=== PATIENT | female | born 1965 | race Caucasian/White ===

== ENCOUNTER → 2016-04-23 | Outpatient (CLI) | payer OTHER ==
--- NOTE | 2016-04-23 10:32 | MM ---
Reason for exam: additional evaluation requested from prior study. Last mammogram was performed 1 year ago. History: Patient has history of other cancer at age 39. Family history of breast cancer in maternal cousin at age 48 and breast cancer in maternal aunt at age 45. Benign right breast US guided needle local of the right breast, October 01, 2009. Benign US right core biopsy of the right breast, January 08, 2005. Retro-pectoral saline implants in both breasts, 1994. Took hormonal contraceptives for 11 years beginning at age 34. Physical Findings: Nurse did not find any significant physical abnormalities on exam. MG 3D Diag Mammo W/Cad ROBIN Bilateral CC, MLO, and ID view(s) were taken. Prior study comparison: April 11, 2015, bilateral MG 3d diag mammo imp w/cad ROBIN. March 04, 2013, CAD bilateral diagnostic mammogram. The breast tissue is heterogeneously dense. This may lower the sensitivity of mammography. No significant new findings when compared with previous films. These results were verbally communicated with the patient and result sheet given to the patient on 04/23/16. ASSESSMENT: Benign, BI-RAD 2 RECOMMENDATION: Routine screening mammogram of both breasts in 1 year.
== END | disposition home or self-care (01) ==
LOC: RADMAMWWP 08:48
PROVIDERS: ATTEND Obstetrics & Gynecology
DX: Z98.82 Breast implant status (principal)
CPT/HCPCS: G0204; G0279

== ENCOUNTER → 2017-04-23 | Outpatient (CLI) | payer OTHER ==
--- NOTE | 2017-04-27 07:00 | MM ---
Reason for exam: screening (asymptomatic). Last mammogram was performed 1 year ago. History: Patient is postmenopausal and has history of other cancer at age 39. Family history of breast cancer in maternal cousin at age 48 and breast cancer in maternal aunt at age 45. Benign right breast US guided needle local of the right breast, October 01, 2009. Benign US right core biopsy of the right breast, January 08, 2005. Retro-pectoral saline implants in both breasts, 1994. Took hormonal contraceptives for 11 years beginning at age 34. Physical Findings: A clinical breast exam by your physician is recommended on an annual basis and results should be correlated with mammographic findings. MG 3D Screen Mammo Imp/Cad Bilateral CC, MLO, and ID view(s) were taken. Prior study comparison: April 23, 2016, bilateral MG 3d diag mammo w/cad ROBIN. April 11, 2015, bilateral MG 3d diag mammo imp w/cad ROBIN. The breast tissue is heterogeneously dense. This may lower the sensitivity of mammography. No significant changes when compared with prior studies. ASSESSMENT: Benign, BI-RAD 2 RECOMMENDATION: Follow-up diagnostic mammogram of both breasts in 1 year.
== END | disposition home or self-care (01) ==
LOC: RADMAMWWP 07:17
PROVIDERS: ATTEND Obstetrics & Gynecology
DX: Z12.31 Encounter for screening mammogram for malignant neoplasm of breast (principal); Z80.3 Family history of malignant neoplasm of breast
CPT/HCPCS: 77063; 77067

== ENCOUNTER → 2017-11-04 | Outpatient (CLI) | payer OTHER ==
--- NOTE | 2017-11-05 12:37 | BD ---
EXAMINATION TYPE: Axial Bone Density DATE OF EXAM: 11/04/2017 COMPARISON: NONE CLINICAL HISTORY: Height: 65.5 Weight: 154.1 FRAX RISK QUESTIONS: Alcohol (3 or more units per day): no Family History (Parent hip fracture): no Glucocorticoids (More than 3mos): no (Ex: prednisone, prednisolone, methylprednisolone, dexamethasone, and hydrocortisone). History of Fracture in Adulthood: no Secondary Osteoporosis: 1. Type 1 Diabetes: no 2. Hyperthyroidism: no 3. Menopause before 45: no 4. Malnutrition: no 5. Chronic liver disease: no Rheumatoid Arthritis: no Current Tobacco Use: no RISK FACTORS HISTORY OF: Family History of Osteoporosis: no Active: yes Diet low in dairy products/other sources of calcium: yes Postmenopausal woman: age 49 Lost more than 2 inches in height since high school: no MEDICATIONS: ventalin, flovent Thyroid Medications: synthroid How Lon years Additional History: pt had thyroid cancer 2005 EXAM MEASUREMENTS: Bone mineral densitometry was performed using the Trochet System. Bone mineral density as measured about the Lumbar spine is: ----- L1-L4(G/cm2): 1.403 T Score Values are as follows: ----- L2: 1.8 ----- L3: 2.9 ----- L4: 1.0 ----- L1-L4: 1.9 Bone mineral density has: decreased-2.0 % since study of: 12.30.2007 Bone mineral density about the R hip (g/cm2): 1.121 Bone mineral density about the L hip (g/cm2): 1.125 T Score values are as follows: -----R Neck: 0.6 -----L Neck: 0.6 -----R Total: 1.0 -----L Total: 1.0 Bone mineral density has: decreased -1.1 % since study of: 12.30.2007 IMPRESSION: No evidence for osteoporosis or osteopenia. NOTE: T-SCORE=SD OF THE YOUNG ADULT MEAN.
== END | disposition home or self-care (01) ==
LOC: RADBDWWP 15:58
PROVIDERS: ATTEND Obstetrics & Gynecology
DX: Z13.820 Encounter for screening for osteoporosis (principal)
CPT/HCPCS: 77080

== ENCOUNTER → 2018-09-09 | Outpatient (CLI) | payer OTHER ==
--- NOTE | 2018-09-09 11:50 | MM ---
Reason for exam: screening (asymptomatic). Last mammogram was performed 1 year and 5 months ago. History: Patient is postmenopausal and has history of other cancer at age 39. Family history of breast cancer in maternal cousin at age 48 and breast cancer in maternal aunt at age 45. Benign right breast US guided needle local of the right breast, October 01, 2009. Benign US right core biopsy of the right breast, January 08, 2005. Retro-pectoral saline implants in both breasts, 1994. Took hormonal contraceptives for 11 years beginning at age 34. Physical Findings: A clinical breast exam by your physician is recommended on an annual basis and results should be correlated with mammographic findings. MG 3D Screen Mammo Imp/Cad Bilateral CC, MLO, and ID view(s) were taken. Prior study comparison: April 23, 2017, bilateral MG 3d screen mammo imp/cad. April 23, 2016, bilateral MG 3d diag mammo w/cad ROBIN. The breast tissue is extremely dense which could obscure a lesion on mammography. No suspicious abnormality. Right biopsy marker noted. There are bilateral retropectoral saline implants. ASSESSMENT: Negative, BI-RAD 1 RECOMMENDATION: Routine screening mammogram of both breasts in 1 year.
== END | disposition home or self-care (01) ==
LOC: RADMAMWWP 08:27
PROVIDERS: ATTEND Obstetrics & Gynecology
DX: Z12.31 Encounter for screening mammogram for malignant neoplasm of breast (principal); Z98.82 Breast implant status
CPT/HCPCS: 77063; 77067

== ENCOUNTER 2019-11-30 13:14 | Emergency (ER) | payer OTHER ==
[2019-11-30 13:21] VITALS: TEMP 98.2
[2019-11-30] MEDS ORDERED: ASPIRIN 81 MG PO STA (13:29)
--- NOTE | 2019-11-30 13:34 | ED ---
General Adult HPI - General Source: patient, RN notes reviewed Mode of arrival: wheelchair Limitations: no limitations <Anibal Evans - Last Filed: 11/30/19 13:53> <Ronald Ohara - Last Filed: 11/30/19 15:02> - General Chief complaint: Arrhythmia/Palpitations Stated complaint: Abnormal EKG Time Seen by Provider: 11/30/19 13:23 - History of Present Illness Initial comments: 54-year-old female presents emergency Department from PCPs office chief complaint of hypertension, chest pressure. Patient states that she normally monitors her blood pressure and states it was elevated last night states that she had a new blood pressure cuff when she checked it again this morning and was found to have hypertension. Patient called ECP regarding today and performed an EKG which he felt that was abnormal. They did not have an old EKG to compare to so sent her to the emergency department for further evaluation.Patient describes that she has a squeezing sensation across her chest but it's not sharp pain.She does see carbon paper interleafer for alph1 antitrypsin. Patient denies any fevers or chills. No headache no dizziness. Patient has no prior cardiac disease. (Anibal Evans) - Related Data Home Medications Medication Instructions Recorded Confirmed Albuterol Sulfate [Ventolin HFA] 1 - 2 puff INHALATION RT-Q6H PRN 11/30/19 11/30/19 Cholecalciferol [Vitamin D3 (25 2,000 unit PO DAILY 11/30/19 11/30/19 Mcg = 1000 Iu)] Fluticasone Propionate [Flovent 2 puff INHALATION RT-BID 11/30/19 11/30/19 Hfa 220 mcg] Levothyroxine Sodium [Synthroid] 125 mcg PO MOTUWETHFRSA 11/30/19 11/30/19 Levothyroxine Sodium [Synthroid] 175 mcg PO MA 11/30/19 11/30/19 Montelukast [Singulair] 10 mg PO HS 11/30/19 11/30/19 Allergies Allergy/AdvReac Type Severity Reaction Status Date / Time meperidine HCl [From Demerol] Allergy Nausea & Verified 11/30/19 14:38 Vomiting Penicillins Allergy Rash/Hives Verified 11/30/19 14:38 Sulfa (Sulfonamide Allergy Rash/Hives Verified 11/30/19 14:38 Antibiotics) Review of Systems ROS Other: All systems not noted in ROS Statement are negative. <Anibal Evans - Last Filed: 11/30/19 13:53> ROS Other: All systems not noted in ROS Statement are negative. <Ronald Ohara - Last Filed: 11/30/19 15:02> ROS Statement: Those systems with pertinent positive or pertinent negative responses have been documented in the HPI. Past Medical History Past Medical History: Asthma, Cancer, GERD/Reflux, GI Bleed, Hypertension Additional Past Medical History / Comment(s): hx thyroid cancer, abdominal pain and black stools History of Any Multi-Drug Resistant Organisms: None Reported Past Surgical History: Section, Tonsillectomy Additional Past Surgical History / Comment(s): thyroidectomy Past Anesthesia/Blood Transfusion Reactions: No Reported Reaction Past Psychological History: No Psychological Hx Reported Smoking Status: Never smoker Past Alcohol Use History: Occasional Past Drug Use History: None Reported - Past Family History Father Family Medical History: Cancer Additional Family Medical History / Comment(s): hx colon cancer <nAibal Evans - Last Filed: 11/30/19 13:53> General Exam Limitations: no limitations General appearance: alert, in no apparent distress Head exam: Present: atraumatic, normocephalic, normal inspection Eye exam: Present: normal appearance, PERRL, EOMI. Absent: scleral icterus, conjunctival injection, periorbital swelling ENT exam: Present: normal exam, normal oropharynx, mucous membranes moist Neck exam: Present: normal inspection, full ROM. Absent: tenderness, meningismus, lymphadenopathy Respiratory exam: Present: normal lung sounds bilaterally. Absent: respiratory distress, wheezes, rales, rhonchi, stridor Cardiovascular Exam: Present: regular rate, normal rhythm, normal heart sounds. Absent: systolic murmur, diastolic murmur, rubs, gallop, clicks GI/Abdominal exam: Present: soft, normal bowel sounds. Absent: distended, tenderness, guarding, rebound, rigid Neurological exam: Present: alert, oriented X3 Skin exam: Present: warm, dry, intact, normal color. Absent: rash <Anibal Evans - Last Filed: 11/30/19 13:53> General appearance: alert, in no apparent distress Head exam: Present: atraumatic, normocephalic, normal inspection Eye exam: Present: normal appearance, PERRL, EOMI. Absent: scleral icterus, conjunctival injection, periorbital swelling ENT exam: Present: normal exam, mucous membranes moist Neck exam: Present: normal inspection. Absent: tenderness, meningismus, lymphadenopathy Respiratory exam: Present: normal lung sounds bilaterally. Absent: respiratory distress, wheezes, rales, rhonchi, stridor Cardiovascular Exam: Present: regular rate, normal rhythm, normal heart sounds. Absent: systolic murmur, diastolic murmur, rubs, gallop, clicks GI/Abdominal exam: Present: soft, normal bowel sounds. Absent: distended, tenderness, guarding, rebound, rigid Extremities exam: Present: normal inspection, full ROM, normal capillary refill. Absent: tenderness, pedal edema, joint swelling, calf tenderness Back exam: Present: normal inspection Neurological exam: Present: alert, oriented X3, CN II-XII intact Psychiatric exam: Present: normal affect, normal mood Skin exam: Present: warm, dry, intact, normal color. Absent: rash <Ronald Ohara - Last Filed: 11/30/19 15:02> Course <Ronald Ohara - Last Filed: 11/30/19 15:02> Vital Signs 11/30/19 11/30/19 11/30/19 13:19 14:00 14:35 Temperature 98.2 F Pulse Rate 75 67 62 Respiratory 18 12 18 Rate Blood Pressure 176/98 178/95 155/104 O2 Sat by Pulse 100 98 100 Oximetry - Reevaluation(s) Reevaluation #1: 11/30/19 15:01 Medical records reviewed (Ronald Ohara) Reevaluation #2: 11/30/19 15:01 Patient reevaluated with symptoms significantly improved, no chest pain Spoke with patient regarding results, questions answered Patient feels good for discharge home (Ronald Ohara) EKG Findings - EKG Comments: EKG Findings:: EKG performed at 13:32 normal sinus rhythm rate of 65 AR 124 QRS 76 QT/QTC 404/420 <Anibal Evans - Last Filed: 11/30/19 13:53> Medical Decision Making - Lab Data Result diagrams: 11/30/19 13:48 11/30/19 13:48 <Ronald Ohara - Last Filed: 11/30/19 15:02> - Medical Decision Making 54 female DF for chest pain evaluation possible normal EKG evaluation and dew onset hypertension. Patient relatively asymptomatic can be discharged home to start new blood pressure medication follow-up with primary care (Ronald Ohara) - Lab Data Lab Results 11/30/19 11/30/19 11/30/19 Range/Units 13:48 13:48 13:48 WBC 4.8 (3.8-10.6) k/uL RBC 4.97 (3.80-5.40) m/uL Hgb 15.0 (11.4-16.0) gm/dL Hct 46.1 H (34.0-46.0) % MCV 92.7 (80.0-100.0) fL MCH 30.2 (25.0-35.0) pg MCHC 32.5 (31.0-37.0) g/dL RDW 12.1 (11.5-15.5) % Plt Count 268 (150-450) k/uL Neutrophils % 69 % Lymphocytes % 22 % Monocytes % 5 % Eosinophils % 1 % Basophils % 1 % Neutrophils # 3.3 (1.3-7.7) k/uL Lymphocytes # 1.0 (1.0-4.8) k/uL Monocytes # 0.3 (0-1.0) k/uL Eosinophils # 0.1 (0-0.7) k/uL Basophils # 0.0 (0-0.2) k/uL PT 9.9 (9.0-12.0) sec INR 1.0 (<1.2) APTT 23.5 (22.0-30.0) sec D-Dimer 0.27 (<0.60) mg/L FEU Sodium 137 (137-145) mmol/L Potassium 4.0 (3.5-5.1) mmol/L Chloride 105 (98-107) mmol/L Carbon Dioxide 24 (22-30) mmol/L Anion Gap 8 mmol/L BUN 16 (7-17) mg/dL Creatinine 0.65 (0.52-1.04) mg/dL Est GFR (CKD-EPI)AfAm >90 (>60 ml/min/1.73 sqM) Est GFR (CKD-EPI)NonAf >90 (>60 ml/min/1.73 sqM) Glucose 91 (74-99) mg/dL Calcium 9.9 (8.4-10.2) mg/dL Magnesium 2.0 (1.6-2.3) mg/dL Total Bilirubin 0.8 (0.2-1.3) mg/dL AST 30 (14-36) U/L ALT 20 (4-34) U/L Alkaline Phosphatase 56 (38-126) U/L Troponin I (0.000-0.034) ng/mL NT-Pro-B Natriuret Pep pg/mL Total Protein 7.5 (6.3-8.2) g/dL Albumin 4.9 (3.5-5.0) g/dL 11/30/19 11/30/19 Range/Units 13:48 13:48 WBC (3.8-10.6) k/uL RBC (3.80-5.40) m/uL Hgb (11.4-16.0) gm/dL Hct (34.0-46.0) % MCV (80.0-100.0) fL MCH (25.0-35.0) pg MCHC (31.0-37.0) g/dL RDW (11.5-15.5) % Plt Count (150-450) k/uL Neutrophils % % Lymphocytes % % Monocytes % % Eosinophils % % Basophils % % Neutrophils # (1.3-7.7) k/uL Lymphocytes # (1.0-4.8) k/uL Monocytes # (0-1.0) k/uL Eosinophils # (0-0.7) k/uL Basophils # (0-0.2) k/uL PT (9.0-12.0) sec INR (<1.2) APTT (22.0-30.0) sec D-Dimer (<0.60) mg/L FEU Sodium (137-145) mmol/L Potassium (3.5-5.1) mmol/L Chloride (98-107) mmol/L Carbon Dioxide (22-30) mmol/L Anion Gap mmol/L BUN (7-17) mg/dL Creatinine (0.52-1.04) mg/dL Est GFR (CKD-EPI)AfAm (>60 ml/min/1.73 sqM) Est GFR (CKD-EPI)NonAf (>60 ml/min/1.73 sqM) Glucose (74-99) mg/dL Calcium (8.4-10.2) mg/dL Magnesium (1.6-2.3) mg/dL Total Bilirubin (0.2-1.3) mg/dL AST (14-36) U/L ALT (4-34) U/L Alkaline Phosphatase (38-126) U/L Troponin I <0.012 (0.000-0.034) ng/mL NT-Pro-B Natriuret Pep 53 pg/mL Total Protein (6.3-8.2) g/dL Albumin (3.5-5.0) g/dL Disposition <Anibal Evans - Last Filed: 11/30/19 13:53> Is patient prescribed a controlled substance at d/c from ED?: No <Ronald Ohara - Last Filed: 11/30/19 15:02> Clinical Impression: Hypertension Disposition: HOME SELF-CARE Condition: Good Instructions (If sedation given, give patient instructions): Hypertension (ED) Referrals: Roseanne Whtieside MD [Primary Care Provider] - 1-2 days
[2019-11-30 13:57] LABS: Basophils % (A) 1 %; Eosinophils # (A) 0.1 k/uL (0-0.7); Eosinophils % (A) 1 %; HCT 46.1 % (34.0-46.0); Lymphocytes % (A) 22 %; MCH 30.2 pg (25.0-35.0); MCHC 32.5 g/dL (31.0-37.0); MCV 92.7 fL (80.0-100.0); Mean Platelet Volume 7.4; Monocytes # (A) 0.3 k/uL (0-1.0); Monocytes % (A) 5 %; Neutrophils # (A) 3.3 k/uL (1.3-7.7); Neutrophils % (A) 69 %; Platelet Count 268 k/uL (150-450); RBC 4.97 m/uL (3.80-5.40); RDW 12.1 % (11.5-15.5); WBC 4.8 k/uL (3.8-10.6)
[2019-11-30 14:05] LABS: ALT 20 U/L (4-34); AST 30 U/L (14-36); African American GFR (CKD) >90 (>60 ml/min/1.73 sqM); Albumin 4.9 g/dL (3.5-5.0); Alkaline Phosphatase 56 U/L (38-126); Anion Gap 8 mmol/L; Blood Urea Nitrogen 16 mg/dL (7-17); Calcium 9.9 mg/dL (8.4-10.2); Carbon Dioxide 24 mmol/L (22-30); Chloride 105 mmol/L (98-107); Glucose 91 mg/dL (74-99); Non-African American GFR(CKD) >90 (>60 ml/min/1.73 sqM); Sodium 137 mmol/L (137-145); Total Bilirubin 0.8 mg/dL (0.2-1.3); Total Protein 7.5 g/dL (6.3-8.2)
--- NOTE | 2019-11-30 14:08 | XR ---
EXAMINATION TYPE: XR chest 2V DATE OF EXAM: 11/30/2019 COMPARISON: NONE HISTORY: Chest pain TECHNIQUE: Frontal and lateral views of the chest are obtained. FINDINGS: There is no focal air space opacity. No evidence for pneumothorax. No pleural effusion. The cardiac silhouette size is within normal limits. The osseous structures are grossly intact. IMPRESSION: 1. No acute cardiopulmonary process.
[2019-11-30 14:27] LABS: D-Dimer 0.27 mg/L FEU (<0.60); Partial Thromboplastin Time 23.5 sec (22.0-30.0); Prothrombin Time 9.9 sec (9.0-12.0)
[2019-11-30 14:37] VITALS: RESP 18
[2019-11-30 15:14] VITALS: BP 152/85; PULSE 70
== END 2019-11-30 15:12 | disposition home or self-care (01) ==
LOC: EC 13:14
DX: I10 Essential (primary) hypertension (principal); J45.909 Unspecified asthma, uncomplicated; Z79.51 Long term (current) use of inhaled steroids; Z79.890 Hormone replacement therapy; Z88.0 Allergy status to penicillin; Z88.2 Allergy status to sulfonamides; Z88.5 Allergy status to narcotic agent; Z85.850 Personal history of malignant neoplasm of thyroid
CPT/HCPCS: 36415; 71046; 80053; 83735; 83880; 84484; 85025; 85379; 85610; 85730; 99285

== ENCOUNTER → 2020-08-02 | Outpatient (CLI) | payer OTHER ==
--- NOTE | 2020-08-02 10:25 | NM ---
EXAMINATION TYPE: NM hepatobiliary w EF DATE OF EXAM: 08/02/2020 COMPARISON: NONE HISTORY: Right upper quadrant pain TECHNIQUE: After the intravenous administration of 4.6 mCi Tc 99m Mebrofenin hepatobiliary scintigrap hy is performed. Immediate images post injection. FINDINGS: There is satisfactory initial accumulation of tracer by the liver. The gallbladder is visualized wit hin 14 minutes. The small bowel activity is noted within 22 minutes. At one hour 8 ounces of oral e nsure plus is given to mimic CCK and gallbladder ejection fraction is calculated at 62 %, in the norm al range. Therefore there is no scintigraphic evidence of cystic or common bile duct obstruction to suggest acute cholecystitis or gallbladder dyskinesia. IMPRESSION: Exam is within normal limits.
== END | disposition home or self-care (01) ==
LOC: RADNMMAIN 07:04
PROVIDERS: ATTEND Physician Assistant Medical
DX: R10.11 Right upper quadrant pain (principal)
CPT/HCPCS: 78226; A9537

== ENCOUNTER → 2020-08-23 | Outpatient (CLI) | payer OTHER ==
--- NOTE | 2020-08-23 15:26 | CT ---
EXAMINATION TYPE: CT abdomen w con DATE OF EXAM: 08/23/2020 COMPARISON: None HISTORY: abdominal pain, abnormal pancreatic labs CT DLP: 354.2 mGycm Automated exposure control for dose reduction was used. CONTRAST: Performed with IV Contrast, patient injected with 100 mL of Isovue 300. Images obtained from the diaphragm to the iliac crests with oral and IV contrast. The lung bases are clear. There is no pleural effusion. There is bilateral breast implants. Heart siz e is normal. There is no pericardial effusion. There are numerous rounded fluid densities in the live r consistent with multiple small cysts. These measure up to 13 mm. Gallbladder is intact. Spleen is i ntact. There is no evidence of pancreatic mass. The stomach is intact. There is some wall thickening of the gastric antrum probably due to peristalsis. This is circumferential and uniform thickness. Thi s appears to change slightly on the delayed images also consistent with peristalsis. There is no adrenal mass. Kidneys show satisfactory contrast opacification. There is no hydronephrosi s. There is no retroperitoneal adenopathy. Delayed images show normal renal excretion. there is no mesenteric edema. There is no ascites or free air. There is no bowel obstruction. The smith mbar vertebra have normal alignment. There is no compression fracture. Posterior elements are intact. IMPRESSION: Multiple hepatic cysts. No evidence of pancreatic mass.
== END | disposition home or self-care (01) ==
LOC: RADCTMAIN 11:05
PROVIDERS: ATTEND Physician Assistant Medical
DX: K76.89 Other specified diseases of liver (principal)
CPT/HCPCS: 74160; Q9967

== ENCOUNTER → 2020-12-11 | Outpatient (CLI) | payer OTHER ==
--- NOTE | 2020-12-12 13:18 | MM ---
Reason for exam: screening (asymptomatic). Last mammogram was performed 1 year ago. History: Patient is postmenopausal and has history of other cancer at age 39. Family history of breast cancer in maternal cousin at age 48 and breast cancer in maternal aunt at age 45. Benign right breast US guided needle local of the right breast, October 01, 2009. Benign US right core biopsy of the right breast, January 08, 2005. Retro-pectoral saline implants in both breasts, 1994. Took hormonal contraceptives for 11 years beginning at age 34. Physical Findings: A clinical breast exam by your physician is recommended on an annual basis and results should be correlated with mammographic findings. MG 3D Screen Mammo Imp/Cad Bilateral CC and MLO view(s) were taken. Prior study comparison: December 08, 2019, bilateral MG 3d screen mammo imp/cad. September 09, 2018, bilateral MG 3d screen mammo imp/cad. The breast tissue is heterogeneously dense. This may lower the sensitivity of mammography. Stable bilateral implants. ASSESSMENT: Negative, BI-RAD 1 RECOMMENDATION: Routine screening mammogram of both breasts in 1 year.
== END | disposition home or self-care (01) ==
LOC: RADMAMWWP 08:16
PROVIDERS: ATTEND Obstetrics & Gynecology
DX: Z12.31 Encounter for screening mammogram for malignant neoplasm of breast (principal); Z78.0 Asymptomatic menopausal state; Z85.9 Personal history of malignant neoplasm, unspecified; Z79.3 Long term (current) use of hormonal contraceptives; Z80.3 Family history of malignant neoplasm of breast
CPT/HCPCS: 77063; 77067

== ENCOUNTER 2021-12-30 00:44 | Emergency (ER) | payer OTHER ==
[2021-12-30 00:53] VITALS: BP 133/83; RESP 16; TEMP 97.8
[2021-12-30] MEDS ORDERED: SODIUM CHLORIDE 0.9% 1,000 ML IV STA (00:54)
--- NOTE | 2021-12-30 00:56 | ED ---
Chest Pain HPI - General Chief Complaint: Chest Pain Stated Complaint: Chest Pain Time Seen by Provider: 12/30/21 00:54 Source: patient, RN notes reviewed, old records reviewed Mode of arrival: ambulatory Limitations: no limitations - History of Present Illness Initial Comments: This is a 56-year-old female DF for evaluation patient presents with right-sided chest pain. Has had to go to her job but no other specific complaint noted. Pain is nearly resolved here on arrival to the ER. She has no nausea no vomiting no fevers no cough no congestion no shortness of breath and tingling no other prior similar history MD Complaint: chest pain -: hour(s) Onset: during rest, during exertion Pain Location: right chest Pain Radiation: back, jaw/teeth Severity: moderate Severity scale (1-10): 4 Quality: tightness, aching Consistency: intermittent, now resolved Improves With: nothing Worsens With: nothing Anginal Symptoms: dyspnea Other Symptoms: palpitations Treatments Prior to Arrival: none - Related Data Home Medications Medication Instructions Recorded Confirmed Albuterol Sulfate [Ventolin HFA] 1 - 2 puff INHALATION RT-Q6H PRN 11/30/19 11/30/19 Cholecalciferol [Vitamin D3 (25 2,000 unit PO DAILY 11/30/19 11/30/19 Mcg = 1000 Iu)] Fluticasone Propionate [Flovent 2 puff INHALATION RT-BID 11/30/19 11/30/19 Hfa 220 mcg] Levothyroxine Sodium [Synthroid] 125 mcg PO MOTUWETHFRSA 11/30/19 11/30/19 Levothyroxine Sodium [Synthroid] 175 mcg PO MA 11/30/19 11/30/19 Montelukast [Singulair] 10 mg PO HS 11/30/19 11/30/19 Allergies Allergy/AdvReac Type Severity Reaction Status Date / Time meperidine HCl [From Demerol] Allergy Nausea & Verified 12/30/21 00:53 Vomiting Penicillins Allergy Rash/Hives Verified 12/30/21 00:53 Sulfa (Sulfonamide Allergy Rash/Hives Verified 12/30/21 00:53 Antibiotics) Review of Systems ROS Statement: Those systems with pertinent positive or pertinent negative responses have been documented in the HPI. ROS Other: All systems not noted in ROS Statement are negative. EKG Findings - EKG Comments: EKG Findings:: EKG sinus 60 NM 124 QRS 90 QTC 433 Past Medical History Past Medical History: Asthma, Cancer, GERD/Reflux, GI Bleed, Hypertension Additional Past Medical History / Comment(s): hx thyroid cancer, abdominal pain and black stools History of Any Multi-Drug Resistant Organisms: None Reported Past Surgical History: Section, Tonsillectomy Additional Past Surgical History / Comment(s): thyroidectomy Past Anesthesia/Blood Transfusion Reactions: No Reported Reaction Past Psychological History: No Psychological Hx Reported Smoking Status: Never smoker Past Alcohol Use History: Occasional Past Drug Use History: None Reported - Past Family History Father Family Medical History: Cancer Additional Family Medical History / Comment(s): hx colon cancer General Exam Limitations: no limitations General appearance: alert, in no apparent distress Head exam: Present: atraumatic, normocephalic, normal inspection Eye exam: Present: normal appearance, PERRL, EOMI. Absent: scleral icterus, conjunctival injection, periorbital swelling ENT exam: Present: normal exam, mucous membranes moist Neck exam: Present: normal inspection. Absent: tenderness, meningismus, lymphadenopathy Respiratory exam: Present: normal lung sounds bilaterally. Absent: respiratory distress, wheezes, rales, rhonchi, stridor Cardiovascular Exam: Present: regular rate, normal rhythm, normal heart sounds. Absent: systolic murmur, diastolic murmur, rubs, gallop, clicks GI/Abdominal exam: Present: soft, normal bowel sounds. Absent: distended, tenderness, guarding, rebound, rigid Extremities exam: Present: normal inspection, full ROM, normal capillary refill. Absent: tenderness, pedal edema, joint swelling, calf tenderness Back exam: Present: normal inspection Neurological exam: Present: alert, oriented X3, CN II-XII intact Psychiatric exam: Present: normal affect, normal mood Skin exam: Present: warm, dry, intact, normal color. Absent: rash Course Vital Signs 12/30/21 12/30/21 00:50 01:54 Temperature 97.8 F Pulse Rate 78 Pulse Rate [ 74 Bilateral Apical] Respiratory 16 Rate Blood Pressure 133/83 O2 Sat by Pulse 98 Oximetry - Reevaluation(s) Reevaluation #1: 12/30/21 Medical record is reviewed Patient symptoms resolved here in the ER Patient informed results and questions answered Chest Pain MDM - MDM 56 female with atypical chest pain right-sided chest pain to jaw and neck. X- ray labwork are normal here normal EKG, patient can be discharged home Disposition Clinical Impression: Atypical chest pain, Chest pain Disposition: HOME SELF-CARE Instructions (If sedation given, give patient instructions): Chest Pain (ED) Is patient prescribed a controlled substance at d/c from ED?: No Referrals: Roseanne Whiteside MD [Primary Care Provider] - 1-2 days Time of Disposition: 02:45
[2021-12-30 01:29] LABS: Basophils % (A) 1 %; Eosinophils # (A) 0.1 k/uL (0-0.7); Eosinophils % (A) 2 %; HCT 41.3 % (34.0-46.0); HGB 14.1 gm/dL (11.4-16.0); Lymphocytes # (A) 1.6 k/uL (1.0-4.8); Lymphocytes % (A) 34 %; MCH 31.2 pg (25.0-35.0); MCHC 34.1 g/dL (31.0-37.0); MCV 91.4 fL (80.0-100.0); Mean Platelet Volume 7.4; Monocytes # (A) 0.3 k/uL (0-1.0); Monocytes % (A) 7 %; Neutrophils # (A) 2.6 k/uL (1.3-7.7); Neutrophils % (A) 55 %; Platelet Count 264 k/uL (150-450); RBC 4.52 m/uL (3.80-5.40); RDW 12.7 % (11.5-15.5); WBC 4.6 k/uL (3.8-10.6)
--- NOTE | 2021-12-30 01:40 | XR ---
EXAMINATION TYPE: XR chest 1V portable DATE OF EXAM: 12/30/2021 COMPARISON: 11/30/2019 HISTORY: Chest pain TECHNIQUE: Single view FINDINGS: Heart and mediastinum are normal. Lungs are clear. Diaphragm is normal. Bony thorax appears normal. IMPRESSION: Normal chest
[2021-12-30 01:45] LABS: Partial Thromboplastin Time 25.8 sec (22.0-30.0); Prothrombin Time 11.1 sec (9.0-12.0)
[2021-12-30 01:55] LABS: Albumin 4.8 g/dL (3.5-5.0); Calcium 9.8 mg/dL (8.4-10.2); Magnesium 1.7 mg/dL (1.6-2.3); Potassium 3.6 mmol/L (3.5-5.1); Total Bilirubin 0.3 mg/dL (0.2-1.3); Total Protein 7.2 g/dL (6.3-8.2)
[2021-12-30 01:59] VITALS: PULSE 74
== END 2021-12-30 02:56 | disposition home or self-care (01) ==
LOC: EC 00:44
DX: R07.89 Other chest pain (principal); R06.00 Dyspnea, unspecified; R00.2 Palpitations; J45.909 Unspecified asthma, uncomplicated; I10 Essential (primary) hypertension; Z79.51 Long term (current) use of inhaled steroids; Z88.6 Allergy status to analgesic agent; Z88.0 Allergy status to penicillin; Z88.2 Allergy status to sulfonamides
CPT/HCPCS: 36415; 71045; 80053; 83690; 83735; 83880; 84484; 85025; 85379; 85610; 85730; 93005; 99285

== ENCOUNTER → 2022-04-08 | Outpatient (CLI) | payer OTHER ==
--- NOTE | 2022-04-09 07:17 | MM ---
Reason for Exam: Hx of breast augmentation, asymptomatic. Last mammogram was performed 1 year(s) and 4 month(s) ago. Patient History: Menarche at age 14. First Full-Term at age 27. Postmenopausal. Patient has history of breast feeding. Other cancer, age 39. Hormonal Contraceptives for 11 years from age 34 until age 45. 10/01/2009, Benign Excisional Biopsy on the right side. 01/08/2005, Benign Core Biopsy on the right side. 1994, Bilateral Implants. Maternal cousin had breast cancer, age 48. Maternal aunt had breast cancer, age 45. Risk Values: Valerie 5 year model risk: 2.0%. NCI Lifetime model risk: 11.7%. Prior Study Comparison: 04/23/2016 Bilateral Diagnostic Mammogram, [facility]. 04/23/2017 Bilateral Screening Mammogram, [facility]. 09/09/2018 Bilateral Screening Mammogram, [facility]. 12/08/2019 Bilateral Screening Mammogram, [facility]. 12/11/2020 Bilateral Screening Mammogram, [facility]. Tissue Density: The breast tissue is heterogeneously dense. This may lower the sensitivity of mammography. Findings: Analyzed By CAD. Right biopsy clip. There is no suspicious group of microcalcifications or new suspicious mass in either breast. Overall Assessment: Negative, BI-RAD 1 Management: Screening Mammogram of both breasts in 1 year. A clinical breast exam by your physician is recommended on an annual basis and results should be correlated with mammographic findings. [facility] will attempt to contact patient to return for supplemental views and ultrasound if indicated. Electronically signed and approved by: Errol Dumont DO
== END | disposition home or self-care (01) ==
LOC: RADMAMWWP 06:42
PROVIDERS: ATTEND Family Medicine
DX: Z12.31 Encounter for screening mammogram for malignant neoplasm of breast (principal); Z78.0 Asymptomatic menopausal state; Z80.3 Family history of malignant neoplasm of breast
CPT/HCPCS: 77063; 77067

== ENCOUNTER → 2022-04-08 | Outpatient (CLI) | payer OTHER ==
--- NOTE | 2022-04-08 08:06 | CT ---
EXAMINATION TYPE: CT elbow RT wo con CT DLP: 224.9 mGycm, Automated exposure control for dose reduction was used. DATE OF EXAM: 04/08/2022 7:41 AM COMPARISON: None CLINICAL INDICATION:Female, 56 years old with history of M25.521 PAIN IN RIGHT ELBOW; PHH, Right elbo w pain and unable to fully extend. No injury. TECHNIQUE: Axial images were obtained of the right elbow without the use of IV contrast. Additional coronal and sagittal reformatted images and soft tissue and bone window were obtained for review. 3-D reconstruction was created on a separate workstation. FINDINGS: There is no evidence of fracture, subluxation, or dislocation. No significant soft tissue swelling. Trace joint effusion. Joint space narrowing with marginal osteophytosis at the elbow joint involving the ulna on humerus. Small 2 mm loose body along the anterior humeral ulnar joint. No focal muscular atrophy or edema is identified. No radiopaque foreign body identified. IMPRESSION: 1. No acute fracture or dislocation. 2. Moderate osteoarthritic changes of the elbow with 2 mm loose body. 3. Trace joint effusion.
== END | disposition home or self-care (01) ==
LOC: RADCTMAIN 07:18
PROVIDERS: ATTEND Orthopaedic Surgery Sports Medicine
DX: M19.021 Primary osteoarthritis, right elbow (principal); M25.421 Effusion, right elbow

== ENCOUNTER → 2023-10-01 | Outpatient (CLI) | payer OTHER ==
--- NOTE | 2023-10-05 12:49 | MM ---
Reason for Exam: Screening (asymptomatic). Last mammogram was performed 1 year(s) and 6 month(s) ago. Patient History: Menarche at age 14. First Full-Term at age 27. Postmenopausal. Patient has history of breast feeding. Other cancer, age 39. Hormonal Contraceptives for 11 years from age 34 until age 45. 10/01/2009, Benign Excisional Biopsy on the right side. 01/08/2005, Benign Core Biopsy on the right side. 1994, Bilateral Implants. Maternal cousin had breast cancer, age 48. Maternal aunt had breast cancer, age 45. Risk Values: Valerie 5 year model risk: 2.1%. NCI Lifetime model risk: 11.2%. Prior Study Comparison: 12/08/2019 Bilateral Screening Mammogram, [facility]. 12/11/2020 Bilateral Screening Mammogram, [facility]. 04/08/2022 Bilateral MG 3D screen mammo imp/cad., [facility]. Tissue Density: The breasts are heterogeneously dense, which may obscure small masses. Findings: Analyzed By CAD. Bilateral breast implants appear intact. Right breast: There is no suspicious group of microcalcifications or new suspicious mass. Left breast: There is no suspicious group of microcalcifications or new suspicious mass. Overall Assessment: Negative, BI-RAD 1 Management: Screening Mammogram of both breasts in [address] [facility] will attempt to contact patient to return for supplemental views and ultrasound if indicated. Patient should continue monthly self-breast exams. A clinical breast exam by your physician is recommended on an annual basis. This exam should not preclude additional follow-up of suspicious palpable abnormalities. Note on Valerie scores and lifetime risk: 1. A Valerie score greater than 3% is considered moderate risk. If this is the case, consider specialist referral to assess eligibility for a risk reducing agent. 2. If overall lifetime risk for the development of breast cancer is 20% or higher, the patient may qualify for future screening with alternating mammogram and breast MRI. Electronically signed and approved by: Errol Dumont DO
== END | disposition home or self-care (01) ==
LOC: RADMAMWWP 12:38
PROVIDERS: ATTEND Obstetrics & Gynecology
DX: Z12.31 Encounter for screening mammogram for malignant neoplasm of breast (principal); Z78.0 Asymptomatic menopausal state; Z80.3 Family history of malignant neoplasm of breast
CPT/HCPCS: 77063; 77067

== ENCOUNTER → 2023-11-12 | Outpatient (CLI) | payer OTHER ==
[2023-11-12 22:52] LABS: T4, Free (Free Thyroxine) 1.74 ng/dL (0.80-1.80)
== END | disposition home or self-care (01) ==
LOC: LABWHC1 10:12
PROVIDERS: ATTEND Internal Medicine Endocrinology, Diabetes & Metabolism
DX: C73 Malignant neoplasm of thyroid gland (principal); E03.8 Other specified hypothyroidism
CPT/HCPCS: 36415; 84432; 84439; 84443; 86800

== ENCOUNTER → 2024-04-22 | Outpatient (CLI) | payer OTHER | END | disposition home or self-care (01) | LOC: LABWHC1 11:29 | PROVIDERS: ATTEND Internal Medicine Endocrinology, Diabetes & Metabolism | DX: E03.8 Other specified hypothyroidism (principal) | CPT/HCPCS: 36415; 84443 ==

== ENCOUNTER → 2024-05-05 | Outpatient (CLI) | payer OTHER ==
--- NOTE | 2024-05-05 11:17 | US ---
EXAMINATION TYPE: US thyroid st tissue head/neck DATE OF EXAM: 05/05/2024 COMPARISON: 06/06/22 CLINICAL INDICATION: Female, 58 years old with history of C73 MIRTA OF THYROID GLAND; hx of thyroid can cer. Thyroidectomy 2006 TECHNIQUE: Grayscale and color Doppler imaging of the thyroid gland. FINDINGS: GLAND SIZE: Right Lobe: Surgically absent Left Lobe: Surgically absent Isthmus Thickness: Surgically absent Bilateral neck scanned, no evidence of lymphadenopathy. IMPRESSION: Total thyroidectomy changes redemonstrated. No suspicious new soft tissue mass or adenopa thy noted. No significant change from most recent ultrasound. [facility], , 05/05/2024 11:15 AM
== END | disposition home or self-care (01) ==
LOC: RADUSWWP 10:23
PROVIDERS: ATTEND Internal Medicine Endocrinology, Diabetes & Metabolism
DX: C73 Malignant neoplasm of thyroid gland (principal); Z85.850 Personal history of malignant neoplasm of thyroid
CPT/HCPCS: 76536

== ENCOUNTER 2024-05-10 14:43 | Emergency (ER) | payer OTHER ==
--- NOTE | 2024-05-10 15:21 | ED ---
Neck Injury/Pain HPI - General Chief Complaint: Neck Pain/Injury Stated Complaint: Neck pain Time Seen by Provider: 05/10/24 15:11 Source: patient, RN notes reviewed Mode of arrival: ambulatory Limitations: no limitations - History of Present Illness Initial Comments: This is a 58-year-old female presenting to the emergency room from urgent care for complaint of neck injury. 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 Patient denies hitting her head at the time of the injury states that her neck bent and awkward angle and is experiencing pain of the neck since this injury. She states the pain exacerbated on range of motion mostly significantly with forward flexion. She denies bilateral upper paresthesias, headaches, blurry double vision. States she last took a Motrin earlier this morning. - Related Data Home Medications Medication Instructions Recorded Confirmed Albuterol Sulfate [Ventolin HFA] 1 - 2 puff INHALATION RT-Q6H PRN 11/30/19 11/30/19 Cholecalciferol [Vitamin D3 (25 2,000 unit PO DAILY 11/30/19 11/30/19 Mcg = 1000 Iu)] Fluticasone Propionate [Flovent 2 puff INHALATION RT-BID 11/30/19 11/30/19 Hfa 220 mcg] Levothyroxine Sodium [Synthroid] 125 mcg PO MOTUWETHFRSA 11/30/19 11/30/19 Levothyroxine Sodium [Synthroid] 175 mcg PO MA 11/30/19 11/30/19 Montelukast [Singulair] 10 mg PO HS 11/30/19 11/30/19 Previous Rx's Medication Instructions Recorded Cyclobenzaprine [Flexeril] 10 mg PO TID PRN #15 tab 05/10/24 Allergies Allergy/AdvReac Type Severity Reaction Status Date / Time meperidine HCl [From Demerol] Allergy Nausea & Verified 05/10/24 15:09 Vomiting Penicillins Allergy Rash/Hives Verified 05/10/24 15:09 Sulfa (Sulfonamide Allergy Rash/Hives Verified 05/10/24 15:09 Antibiotics) Review of Systems ROS Statement: Those systems with pertinent positive or pertinent negative responses have been documented in the HPI. ROS Other: All systems not noted in ROS Statement are negative. Past Medical History Past Medical History: Asthma, Cancer, GERD/Reflux, GI Bleed, Hypertension Additional Past Medical History / Comment(s): hx thyroid cancer, abdominal pain and black stools History of Any Multi-Drug Resistant Organisms: None Reported Past Surgical History: Section, Tonsillectomy Additional Past Surgical History / Comment(s): thyroidectomy Past Anesthesia/Blood Transfusion Reactions: No Reported Reaction Past Psychological History: No Psychological Hx Reported Smoking Status: Never smoker Past Alcohol Use History: Occasional Past Drug Use History: None Reported - Past Family History Father Family Medical History: Cancer Additional Family Medical History / Comment(s): hx colon cancer General Exam Limitations: no limitations General appearance: alert, in no apparent distress Eye exam: Present: normal appearance, PERRL, EOMI. Absent: scleral icterus, conjunctival injection, periorbital swelling Neck exam: Present: normal inspection, tenderness (with ROM), full ROM Respiratory exam: Present: normal lung sounds bilaterally. Absent: respiratory distress, wheezes, rales, rhonchi, stridor Cardiovascular Exam: Present: regular rate, normal rhythm, normal heart sounds. Absent: systolic murmur, diastolic murmur, rubs, gallop, clicks GI/Abdominal exam: Present: soft, normal bowel sounds. Absent: distended, tenderness, guarding, rebound, rigid Extremities exam: Present: normal inspection, full ROM, normal capillary refill. Absent: tenderness, pedal edema, joint swelling, calf tenderness Back exam: Present: normal inspection Course Vital Signs 05/10/24 05/10/24 15:05 17:29 Temperature 98 F 98.5 F Pulse Rate 71 59 L Respiratory 20 19 Rate Blood Pressure 147/89 137/84 O2 Sat by Pulse 99 99 Oximetry Medical Decision Making - Medical Decision Making Was pt. sent in by a medical professional or institution (, PA, VALUE ANALYST, urgent care, hospital, or [facility]...) When possible be specific @ -Patient was advised by urgent care to report emergency department for further evaluation of neck pain after injury that occurred yesterday evening. Did you speak to anyone other than the patient for history (EMS, parent, family, police, friend...)? What history was obtained from this source @ -No Did you review nursing and triage notes (agree or disagree)? Why? @ -I reviewed and agree with nursing and triage notes Were old charts reviewed (outside hosp., previous admission, EMS record, old EKG, old radiological studies, urgent care reports/EKG's, [facility] records)? Report findings @ -No old charts were reviewed Differential Diagnosis (chest pain, altered mental status, abdominal pain women, abdominal pain men, vaginal bleeding, weakness, fever, dyspnea, syncope, headache, dizziness, GI bleed, back pain, seizure, CVA, palpatations, mental health, musculoskeletal)? @ -Differential Musculoskeletal Muscular strain, contusion, ligament sprain, fracture, arthritis, septic arthritis, bursitis, cellulitis, muscle spasm, nerve compression, DVT, arterial occlusion, herpes zoster, electrolyte abnormality, tumor.... This is not meant to be in all inclusive list EKG interpreted by me (3pts min.). @ -None X-rays interpreted by me (1pt min.). @ -None done CT interpreted by me (1pt min.). @ -CT of the brain and C-spine without contrast reveals no acute cervical spine trauma with no acute intracranial bleed or mass effect, 7.2 mm calcified meningioma of the left frontal region U/S interpreted by me (1pt. min.). @ -None done What testing was considered but not performed or refused? (CT, X-rays, U/S, labs)? Why? @ -None What meds were considered but not given or refused? Why? @ -None Did you discuss the management of the patient with other professionals (professionals i.e. , PA, VALUE ANALYST, lab, RT, psych nurse, social media strategist, set up and charger, teacher, precinct commanding officer, case investigator)? Give summary @ -No Was smoking cessation discussed for >3mins.? @ -No Was critical care preformed (if so, how long)? @ -No Were there social determinants of health that impacted care today? How? (Homelessness, low income, unemployed, alcoholism, drug addiction, transportation, low edu. Level, literacy, decrease access to med. care, [facility], rehab)? @ -No Was there de-escalation of care discussed even if they declined (Discuss DNR or withdrawal of care, Hospice)? DNR status @ -No What co-morbidities impacted this encounter? (DM, HTN, Smoking, COPD, CAD, Cancer, CVA, ARF, Chemo, Hep., AIDS, mental health diagnosis, sleep apnea, morbid obesity)? @ -None Was patient admitted / discharged? Hospital course, mention meds given and route, prescriptions, significant lab abnormalities, going to OR and other pertinent info. @ -Discharge. 58-year-old female presenting with neck pain. Patient noted to have full range of motion of the neck however pain is exacerbated on motion specifically forward flexion. There are no neurological deficits of bilateral upper extremities. She is provided with dose of Tylenol. CT is unremarkable. Recommend the patient continue supportive treatment at home and follow-up with primary care provider. Case discussed with Dr. Ohara. Undiagnosed new problem with uncertain prognosis? @ -No Drug Therapy requiring intensive monitoring for toxicity (Heparin, Nitro, Insulin, Cardizem)? @ -No Were any procedures done? @ -No Diagnosis/symptom? @ -Neck strain Acute, or Chronic, or Acute on Chronic? @ -Acute Uncomplicated (without systemic symptoms) or Complicated (systemic symptoms)? @ -Uncomplicated Side effects of treatment? @ -No Exacerbation, Progression, or Severe Exacerbation? @ -No Poses a threat to life or bodily function? How? (Chest pain, USA, MA, pneumonia, PE, COPD, DKA, ARF, appy, cholecystitis, CVA, Diverticulitis, Homicidal, Suicidal, threat to staff... and all critical care pts) @ -No Disposition Clinical Impression: Strain of neck Disposition: HOME SELF-CARE Condition: Good Instructions (If sedation given, give patient instructions): Cervical Strain (DC) Additional Instructions: Please return to the Emergency Department if symptoms worsen or any other concerns. Prescriptions: Cyclobenzaprine [Flexeril] 10 mg PO TID PRN #15 tab PRN Reason: Muscle Spasm Is patient prescribed a controlled substance at d/c from ED?: No Referrals: Roseanne Whiteside MD [Primary Care Provider] - 1-2 days Time of Disposition: 17:08
[2024-05-10] MEDS: KETOROLAC 15 MG/ML 1 ML VIAL IM STA (15:32)
--- NOTE | 2024-05-10 16:28 | CT ---
EXAMINATION TYPE: CT brain gael alford con DATE OF EXAM: 05/10/2024 COMPARISON: None CLINICAL INDICATION: Female, 58 years old with history of fall onto neck, pain; PHH, pain after sledd ing injury TECHNIQUE: CT scan of the head and cervical spine are performed without contrast. CT DLP: 1423.[address] CTDI: mGy Automated exposure control for dose reduction was used. Findings: Head CT: Ventricles, basal cisterns and sulci over convexities within normal limits and there is no mass effec t or shift of midline structures. There is no acute intra or extra-axial hemorrhage. There is a posterior left frontal 7.2 mm calcified extra-axial mass consistent with a small meningiom a. Posterior fossa including the brainstem, fourth ventricle and cerebellar pontine angles are grossly n ormal. The intraorbital contents appear normal and symmetric. Visualized paranasal sinuses are well aerated. The calvarium is intact. CT cervical spine: Craniovertebral junction relationships and prevertebral soft tissues are normal. The cervical vertebral segments are normal in height and alignment and there is no fracture subluxati on. There is mild disc space narrowing and spondylosis at the C4-5 level and moderate disc space narrowin g and spondylosis at C5-6 level there is fusion of the C3-4 facet joint on the left and severe degene rative change of facet joints at the C2-3 level on the left. There is mild to moderate degeneration o f the uncovertebral joints at the C5-6 level. The bony cervical canal is widely patent and there is no bony encroachment of the neural foramina. The paraspinal soft tissues unremarkable. IMPRESSION: 1. Head CT: No acute bleed or mass effect. 7.2 mm calcified meningioma in the left frontal region. 2. CT cervical spine: No acute trauma. Mild degenerative changes are suspected about. [facility], , 05/10/2024 4:25 PM
[2024-05-10 17:31] VITALS: BP 137/84; PULSE 59; RESP 19; TEMP 98.5
== END 2024-05-10 17:34 | disposition home or self-care (01) ==
LOC: EC 14:43
DX: S16.1XXA Strain of muscle, fascia and tendon at neck level, initial encounter (principal); Z88.0 Allergy status to penicillin; Z88.2 Allergy status to sulfonamides; Z88.5 Allergy status to narcotic agent; W19.XXXA Unspecified fall, initial encounter
CPT/HCPCS: 72125; 70450; 99284; 96372; J1885

== ENCOUNTER → 2024-10-21 | Outpatient (CLI) | payer OTHER ==
[2024-10-21 16:10] LABS: T4, Free (Free Thyroxine) 1.56 ng/dL (0.80-1.80)
== END | disposition home or self-care (01) ==
LOC: LABWHC1 09:40
PROVIDERS: ATTEND Internal Medicine Endocrinology, Diabetes & Metabolism
DX: E03.8 Other specified hypothyroidism (principal); C73 Malignant neoplasm of thyroid gland
CPT/HCPCS: 36415; 84432; 84439; 84443; 86800